=== PATIENT | male | born 2000 | race Caucasian/White ===

== ENCOUNTER 2023-07-22 15:17 | Emergency (ER) | payer OTHER ==
[~2023-07-22] VITALS: Ht 175.3 cm; Wt 72.6 kg
[2023-07-22] MEDS ORDERED: TDAP DIPH,PERTUSS,TET VAC/PF 0.5 ML DISP.SYRIN IM ONE ×2 (15:45→15:49)
[2023-07-22] MEDS ORDERED: BACITRACIN ZINC OINT 15 GM TUBE TOP STA (16:17)
[2023-07-22] MEDS ORDERED: BACITRACIN ZINC OINT 15 GM TUBE ONE (16:25)
[2023-07-22 17:16] VITALS: BP 137/84; TEMP 98.3; O2SAT 97
== END 2023-07-22 17:17 | disposition home or self-care (01) ==
LOC: ER 15:22
DX: S01.01XA Laceration without foreign body of scalp, initial encounter (principal); R51.9 Headache, unspecified; W20.8XXA Other cause of strike by thrown, projected or falling object, initial encounter; Y93.89 Activity, other specified; Y92.89 Other specified places as the place of occurrence of the external cause; Y99.8 Other external cause status
CPT/HCPCS: 70450; 90715; A4606; A4663